=== PATIENT | female | born 1955 | race Caucasian/White ===

== ENCOUNTER 2017-03-18 15:31 | Emergency (ER) | payer BC, OTHER ==
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
[2017-03-18] MEDS ORDERED: Sodium Chloride 0.9% 10 ML Syringe FLUSH PRN (16:04)
[2017-03-18] MEDS ORDERED: Sodium Chloride 0.9% 500 ML IV SCH (16:15)
[2017-03-18 16:26] LABS: CHLORIDE,CL 103 mmol/L (98-107); SODIUM,NA 140 mmol/L (136-145)
[2017-03-18 19:11] VITALS: BP 140/72
== END 2017-03-18 19:00 | disposition home or self-care (01) ==
LOC: LL.ED 15:31
DX: T67.5XXA Heat exhaustion, unspecified, initial encounter (principal); N39.0 Urinary tract infection, site not specified; K21.9 Gastro-esophageal reflux disease without esophagitis; E78.00 Pure hypercholesterolemia, unspecified; I10 Essential (primary) hypertension; M19.90 Unspecified osteoarthritis, unspecified site; F41.9 Anxiety disorder, unspecified; F32.9 Major depressive disorder, single episode, unspecified; Z96.22 Myringotomy tube(s) status; Z88.1 Allergy status to other antibiotic agents; Z91.09 Other allergy status, other than to drugs and biological substances; Z79.899 Other long term (current) drug therapy; Z90.49 Acquired absence of other specified parts of digestive tract; Z98.890 Other specified postprocedural states; Z90.710 Acquired absence of both cervix and uterus; Z87.891 Personal history of nicotine dependence
CPT/HCPCS: 36415; 80053; 81001; 82550; 82553; 83605; 85025; 87086; 96360; 96361; 99283; J7030; J7050

== ENCOUNTER 2018-04-20 13:45 | Emergency (ER) | payer OTHER ==
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
[2018-04-20] MEDS ORDERED: Lactated Ringers 1,000 ML IV ONE (14:10)
[2018-04-20] MEDS ORDERED: Sodium Chloride 0.9% 10 ML Syringe FLUSH PRN (14:10)
[2018-04-20] MEDS ORDERED: cefTRIAXone 1 GM in Sodium Chloride 0.9% 100 ML IV SCH (14:15)
[2018-04-20 14:49] LABS: CHLORIDE,CL 106 mmol/L (98-107); SODIUM,NA 142 mmol/L (136-145)
[2018-04-20 16:05] VITALS: BP 118/63
== END 2018-04-20 16:30 | disposition home or self-care (01) ==
LOC: LL.ED 13:45
DX: T67.5XXA Heat exhaustion, unspecified, initial encounter (principal); I24.9 Acute ischemic heart disease, unspecified; F41.8 Other specified anxiety disorders; J44.9 Chronic obstructive pulmonary disease, unspecified; I10 Essential (primary) hypertension; M15.0 Primary generalized (osteo)arthritis; E78.2 Mixed hyperlipidemia; K21.9 Gastro-esophageal reflux disease without esophagitis; Z87.891 Personal history of nicotine dependence; Z79.899 Other long term (current) drug therapy; Z88.1 Allergy status to other antibiotic agents; Z88.8 Allergy status to other drugs, medicaments and biological substances
CPT/HCPCS: 36415; 70450; 74022; 80053; 81001; 82150; 82550; 82553; 83605; 83690; 83735; 84146; 84443; 84550; 85025; 85610; 85730; 86140; 86308; 87086; 96360; 99284; J7120

== ENCOUNTER 2018-05-24 19:50 | Emergency (ER) | payer OTHER ==
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
[2018-05-24 20:39] VITALS: BP 142/68
== END 2018-05-24 21:00 | disposition home or self-care (01) ==
LOC: LL.ED 19:50
DX: R51 Headache (principal); Z88.8 Allergy status to other drugs, medicaments and biological substances; Z88.1 Allergy status to other antibiotic agents; Z79.899 Other long term (current) drug therapy; Z87.891 Personal history of nicotine dependence
CPT/HCPCS: 99284

== ENCOUNTER 2019-03-22 15:37 | Emergency (ER) | payer OTHER ==
[2019-03-22 15:51] VITALS: BP 135/71
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
== END 2019-03-22 16:20 | disposition home or self-care (01) ==
LOC: LL.ED 15:37
DX: T67.6XXA Heat fatigue, transient, initial encounter (principal); F41.9 Anxiety disorder, unspecified; F32.9 Major depressive disorder, single episode, unspecified; I10 Essential (primary) hypertension; E78.00 Pure hypercholesterolemia, unspecified; K21.9 Gastro-esophageal reflux disease without esophagitis; Z79.899 Other long term (current) drug therapy; Z88.1 Allergy status to other antibiotic agents; Z91.09 Other allergy status, other than to drugs and biological substances; Z88.8 Allergy status to other drugs, medicaments and biological substances
CPT/HCPCS: 99283

== ENCOUNTER 2019-04-25 13:10 | Emergency (ER) | payer OTHER ==
[2019-04-25 13:18] VITALS: BP 142/78; PULSE 66
[2019-04-25 13:58] LABS: CHLORIDE,CL 105 mmol/L (98-107); SODIUM,NA 142 mmol/L (136-145)
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
== END 2019-04-25 15:05 | disposition home or self-care (01) ==
LOC: LL.ED 13:10
DX: T67.5XXA Heat exhaustion, unspecified, initial encounter (principal); I11.0 Hypertensive heart disease with heart failure; I50.9 Heart failure, unspecified; E78.00 Pure hypercholesterolemia, unspecified; K21.9 Gastro-esophageal reflux disease without esophagitis; Z88.8 Allergy status to other drugs, medicaments and biological substances; Z88.1 Allergy status to other antibiotic agents; Z79.899 Other long term (current) drug therapy
CPT/HCPCS: 36415; 80053; 81001; 83735; 84443; 85025; 99283

== ENCOUNTER 2019-12-25 07:10 | Emergency (ER) | payer BC ==
[2019-12-25 07:17] VITALS: BP 144/84; PULSE 62
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
[2019-12-25] MEDS ORDERED: Bacitracin/Neomycin/Polymyxin B Oint 0.9 GM U/D Packet TOP ONE (08:15)
== END 2019-12-25 08:55 | disposition home or self-care (01) ==
LOC: LL.ED 07:10
DX: S61.412A Laceration without foreign body of left hand, initial encounter (principal); L98.0 Pyogenic granuloma; M15.0 Primary generalized (osteo)arthritis; I10 Essential (primary) hypertension; F41.8 Other specified anxiety disorders; K21.9 Gastro-esophageal reflux disease without esophagitis; J44.9 Chronic obstructive pulmonary disease, unspecified; M89.49 Other hypertrophic osteoarthropathy, multiple sites; E78.00 Pure hypercholesterolemia, unspecified; Z87.891 Personal history of nicotine dependence; Z88.8 Allergy status to other drugs, medicaments and biological substances; Z91.048 Other nonmedicinal substance allergy status; Z79.899 Other long term (current) drug therapy; Z88.1 Allergy status to other antibiotic agents; Z91.09 Other allergy status, other than to drugs and biological substances; W22.8XXA Striking against or struck by other objects, initial encounter
CPT/HCPCS: 12002; 99283; J2001

== ENCOUNTER 2020-07-22 10:30 | Emergency (ER) | payer BC, MEDICARE, OTHER ==
[2020-07-22 10:33] VITALS: BP 135/67; PULSE 78
[2020-07-22] MEDS ORDERED: Sodium Chloride 0.9% 1,000 ML IV ONE (10:36)
[2020-07-22] MEDS ORDERED: Sodium Chloride 0.9% 10 ML Syringe FLUSH PRN (10:59)
[2020-07-22 11:19] LABS: CHLORIDE,CL 103 mmol/L (98-107); SODIUM,NA 138 mmol/L (136-145)
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
== END 2020-07-22 12:10 | disposition home or self-care (01) ==
LOC: LL.ED 10:30
DX: R10.84 Generalized abdominal pain (principal); R19.7 Diarrhea, unspecified; R11.2 Nausea with vomiting, unspecified; I10 Essential (primary) hypertension; F41.9 Anxiety disorder, unspecified; F32.9 Major depressive disorder, single episode, unspecified; Z79.899 Other long term (current) drug therapy; Z88.8 Allergy status to other drugs, medicaments and biological substances; Z88.1 Allergy status to other antibiotic agents; Z91.048 Other nonmedicinal substance allergy status; Z20.828 Contact with and (suspected) exposure to other viral communicable diseases
CPT/HCPCS: 36415; 80053; 85025; 87635; 99284; J7030; 99282; U0002

== ENCOUNTER 2020-12-26 13:57 | Emergency (ER) | payer BC, MEDICARE, OTHER ==
[2020-12-26 14:04] VITALS: BP 128/75; PULSE 80
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
== END 2020-12-26 15:15 | disposition home or self-care (01) ==
LOC: LL.ED 13:57
DX: S60.811A Abrasion of right wrist, initial encounter (principal); I10 Essential (primary) hypertension; Z87.891 Personal history of nicotine dependence; Z88.1 Allergy status to other antibiotic agents; Z88.8 Allergy status to other drugs, medicaments and biological substances; Z91.048 Other nonmedicinal substance allergy status; Z91.018 Allergy to other foods; Z79.899 Other long term (current) drug therapy; W22.8XXA Striking against or struck by other objects, initial encounter; Y92.89 Other specified places as the place of occurrence of the external cause; Y99.0 Civilian activity done for income or pay
CPT/HCPCS: 73130-RT; 99282; 99283

== ENCOUNTER 2023-07-11 03:58 | Emergency (ER) | payer SELFPAY ==
[2023-07-11 04:05] VITALS: BP 138/93; PULSE 105
[2023-07-11 04:39] LABS: BASOPHILS ABSOLUTE AUTO 0.04 K/uL (0.00-0.20); BASOPHILS PERCENT AUTO 0.5 % (0.0-2.0); EOSINOPHILS ABSOLUTE AUTO 0.43 K/uL (0.00-0.50); HEMATOCRIT 35.4 % (34.0-46.0); HEMOGLOBIN 11.5 g/dL (11.7-15.5); LYMPHOCYTES PERCENT AUTO 23.4 % (10.0-50.0); MEAN CORPUSCULAR HEMOGLOBIN 31.9 pg (28.2-33.3); MEAN CORPUSCULAR HGB CONC 32.5 g/dL (31.7-36.0); MEAN CORPUSCULAR VOLUME 98.1 fL (84.0-98.0); MONOCYTES ABSOLUTE AUTO 0.66 K/uL (0.00-1.00); MONOCYTES PERCENT AUTO 7.7 % (2.0-14.0); NEUTROPHILS ABSOLUTE AUTO 5.41 K/uL (1.40-7.00); NEUTROPHILS PERCENT AUTO 63.4 % (45.0-80.0); PLATELET COUNT,PLT 336 K/uL (150-350); RED BLOOD CELL COUNT 3.61 M/uL (3.77-5.09); RED CELL DISTRIBUTION WIDTH 13.5 % (11.2-14.1); WHITE BLOOD CELL COUNT,WBC 8.5 K/uL (4.0-10.2)
[2023-07-11 04:59] LABS: ALANINE AMINOTRANSFERASE,ALT 25 U/L (12-78); ALBUMIN 3.6 g/dL (3.4-5.0); ALKALINE PHOSPHATASE 114 IU/L (46-116); ANION GAP 9.6 meq/L (7-15); ASPARTATE AMNIOTRANSFERASE,AST 21 U/L (15-37); BILIRUBIN TOTAL 0.3 mg/dL (0.2-1.0); BLOOD UREA NITROGEN,BUN 13 mg/dL (7-18); CALCIUM 8.9 mg/dL (8.5-10.1); CARBON DIOXIDE,CO2 26.4 mmol/L (21.0-32.0); CHLORIDE,CL 102 mmol/L (98-107); CREATININE 1.04 mg/dL (0.51-1.17); GLUCOSE RANDOM 122 mg/dL (70-99); POTASSIUM,K 4.5 mmol/L (3.5-5.1); PROTEIN TOTAL,TP 7.3 g/dL (6.4-8.2); SODIUM,NA 138 mmol/L (136-145)
[2023-07-11 05:01] LABS: ESTIMATED GFR 59 mL/min (>=60)
[2023-07-11 05:04] LABS: CORONAVIRUS COVID-19 NAA NEGATIVE (NEGATIVE); INFLUENZA A NAA NEGATIVE (NEGATIVE); INFLUENZA B NAA NEGATIVE (NEGATIVE); RESPIRATORY SYNCYTIAL VIR NAA NEGATIVE (NEGATIVE)
== END 2023-07-11 05:59 | disposition home or self-care (01) ==
LOC: LL.ED 03:58
DX: J98.9 Respiratory disorder, unspecified (principal); I10 Essential (primary) hypertension; Z88.1 Allergy status to other antibiotic agents; Z88.8 Allergy status to other drugs, medicaments and biological substances; Z20.822 Contact with and (suspected) exposure to COVID-19
CPT/HCPCS: 0241U; 36415; 71046; 80053; 85025; 87081; 87430; 99283; 99284

== ENCOUNTER 2023-11-27 21:39 | Emergency (ER) | payer OTHER ==
[2023-11-27 22:13] LABS: BASOPHILS ABSOLUTE AUTO 0.04 K/uL (0.00-0.20); BASOPHILS PERCENT AUTO 0.4 % (0.0-2.0); EOSINOPHILS ABSOLUTE AUTO 0.02 K/uL (0.00-0.50); EOSINOPHILS PERCENT AUTO 0.2 % (0.0-5.0); HEMATOCRIT 38.6 % (34.0-46.0); HEMOGLOBIN 12.7 g/dL (11.7-15.5); LYMPHOCYTES ABSOLUTE AUTO 1.18 K/uL (0.50-3.50); LYMPHOCYTES PERCENT AUTO 10.9 % (10.0-50.0); MEAN CORPUSCULAR HEMOGLOBIN 31.3 pg (28.2-33.3); MEAN CORPUSCULAR HGB CONC 32.9 g/dL (31.7-36.0); MEAN CORPUSCULAR VOLUME 95.1 fL (84.0-98.0); MONOCYTES ABSOLUTE AUTO 0.51 K/uL (0.00-1.00); MONOCYTES PERCENT AUTO 4.7 % (2.0-14.0); NEUTROPHILS ABSOLUTE AUTO 9.06 K/uL (1.40-7.00); NEUTROPHILS PERCENT AUTO 83.8 % (45.0-80.0); PLATELET COUNT,PLT 293 K/uL (150-350); RED BLOOD CELL COUNT 4.06 M/uL (3.77-5.09); WHITE BLOOD CELL COUNT,WBC 10.8 K/uL (4.0-10.2)
[2023-11-27 22:32] LABS: URIC ACID 7.1 mg/dL (2.6-7.2)
[2023-11-27 22:39] LABS: ALBUMIN 3.6 g/dL (3.4-5.0); BILIRUBIN TOTAL 0.4 mg/dL (0.2-1.0); CALCIUM 8.9 mg/dL (8.5-10.1); CREATININE 1.2 mg/dL (0.51-1.17); EST CRCL DRUG DOSING (CG) 40.38 mL/min; MAGNESIUM 1.9 mg/dL (1.8-2.4); POTASSIUM,K 4.2 mmol/L (3.5-5.1); PROTEIN TOTAL,TP 7.5 g/dL (6.4-8.2)
[2023-11-27 22:41] LABS: ANION GAP 13.2 meq/L (7-15)
[2023-11-27] MEDS: Orphenadrine 60 MG/2 ML Inj IV ONE (22:44)
[2023-11-27] MEDS: Ketorolac 15 MG/ML SDV IVPUSH ONE (22:44)
[2023-11-27] MEDS: Sodium Chloride 0.9% 10 ML Syringe FLUSH PRN (22:45)
[2023-11-27] MEDS: Sodium Chloride 0.9% 1,000 ML IV ONE (22:51)
[2023-11-27 23:04] LABS: CORONAVIRUS COVID-19 NAA NEGATIVE (NEGATIVE); INFLUENZA A NAA NEGATIVE (NEGATIVE); INFLUENZA B NAA POSITIVE (NEGATIVE); RESPIRATORY SYNCYTIAL VIR NAA NEGATIVE (NEGATIVE)
[2023-11-27] MEDS: Iopamidol 755 Mg/ML 100 ML Bottle ONE (23:10)
[2023-11-27] MEDS: Acetaminophen 325 MG Tab PO ONE (23:25)
[2023-11-28] MEDS: Sodium Chloride 0.9% 1,000 ML IV ONE (00:10)
[2023-11-28] MEDS: Take Home: Orphenadrine 100 MG Tab.ER, 4 Tab Pack PO ONE (00:10)
[2023-11-28] MEDS: Take Home: Ketorolac 10 MG Tab, 4 Tab Pack PO ONE (01:08)
[2023-11-28] MEDS: Ketorolac 10 MG Tab ONE (01:09)
[2023-11-28 01:30] VITALS: BP 127/78; PULSE 90
== END 2023-11-28 01:15 | disposition home or self-care (01) ==
LOC: LL.ED 21:39
DX: J10.1 Influenza due to other identified influenza virus with other respiratory manifestations (principal); E86.0 Dehydration; I10 Essential (primary) hypertension; Z79.899 Other long term (current) drug therapy; Z88.1 Allergy status to other antibiotic agents; Z88.8 Allergy status to other drugs, medicaments and biological substances; Z91.048 Other nonmedicinal substance allergy status
CPT/HCPCS: 0241U; 36415; 71046; 71275; 80053; 83605; 83690; 83735; 83880; 84484; 84550; 85025; 85379; 93005; 93010; 96361; 96374; 96375; 99284; 99284-25; A9270-GY; J1885; J2360; J3490; J7030; Q9967